=== PATIENT | male | born 1965 | race Caucasian/White ===

== ENCOUNTER 2017-07-15 11:23 | Observation (INO) | payer BC ==
--- NOTE | 2017-07-15 11:33 | ER Document Report ---
ED General - General Stated Complaint: LEF SIDE NUMBNESS,BLURRY VISION Time Seen by Provider: 07/15/17 11:27 Mode of Arrival: Medic Information source: Patient TRAVEL OUTSIDE OF THE [place] 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 felt as though his entire left side "was asleep", he was able to move it but he had decreased sensation with pins and needles, he denies any headache, no chest pain, no history of similar symptoms previously, he still having sensation changes on arrival to the emergency room but reports that symptoms are improving - Related Data Allergies/Adverse Reactions: No Known Allergies Allergy (Verified 08/15/15 22:12) Past Medical History - General Information source: Patient - Social History Smoking Status: Unknown if Ever Smoked Family History: Arthritis, DM, Hyperlipidemia, Hypertension, Malignancy Musculoskeltal Medical History: Reports Hx Musculoskeletal Trauma Past Surgical History: Reports: Hx Appendectomy, Hx Tonsillectomy - Immunizations Immunizations up to date: Yes Hx Diphtheria, Pertussis, Tetanus Vaccination: Yes Review of Systems - Review of Systems Constitutional: No symptoms reported EENT: No symptoms reported Cardiovascular: No symptoms reported Respiratory: No symptoms reported Gastrointestinal: No symptoms reported Genitourinary: No symptoms reported Male Genitourinary: No symptoms reported Musculoskeletal: No symptoms reported Skin: No symptoms reported Hematologic/Lymphatic: No symptoms reported Neurological/Psychological: See HPI -: Yes All other systems reviewed and negative Physical Exam - Vital signs Vitals: Temp Pulse Resp BP Pulse Ox 98.2 F 79 19 130/93 H 97 07/15/17 11:41 07/15/17 11:41 07/15/17 11:41 07/15/17 11:41 07/15/17 11:41 Interpretation: Normal - General General appearance: Appears well, Alert - HEENT Head: Normocephalic, Atraumatic Eyes: Normal Pupils: PERRL - Respiratory Respiratory status: No respiratory distress Chest status: Nontender Breath sounds: Normal Chest palpation: Normal - Cardiovascular Rhythm: Regular Heart sounds: Normal auscultation Murmur: No - Abdominal Inspection: Normal Distension: No distension Bowel sounds: Normal Tenderness: Nontender Organomegaly: No organomegaly - Back Back: Normal, Nontender - Extremities General upper extremity: Normal inspection, Nontender, Normal color, Normal ROM , Normal temperature General lower extremity: Normal inspection, Nontender, Normal color, Normal ROM , Normal temperature, Normal weight bearing. No: Lorie's sign - Neurological Neuro grossly intact: Yes Cognition: Normal Orientation: AAOx4 [place] Coma Scale Eye Opening: Spontaneous [place] Coma Scale Verbal: Oriented [place] Coma Scale Motor: Obeys Commands [place] Coma Scale Total: 15 Speech: Normal Motor strength normal: LUE, RUE, LLE, RLE Sensory: Normal - Psychological Associated symptoms: Normal affect, Normal mood - Skin Skin Temperature: Warm Skin Moisture: Dry Skin Color: Normal Course - Re-evaluation Re-evalutation: 07/15/17 12:32 Patient reports his symptoms are improving, he no longer has any left facial numbness or tingling, his left upper extremity numbness and tingling is significantly improved, he continues to have some decreased sensation in his left lower extremity, he continues to have good strength in all 4 extremities, no facial asymmetry, otherwise stable, I did receive a phone call from radiology who recommended MRI of the brain secondary to a small area of concern in the left parietal 07/15/17 14:20 Patient reports symptoms are completely resolved at this point in time, he has good sensation in all 4 extremities with good strength as well, no symptoms at present time, a call was placed [facility], requested callback from neurology to review patient's presentation and imaging findings for further recommendation 07/15/17 14:46 Patient was discussed with neurology at [facility], Dr. Florentino, I did review patient's presentation, his resolution of symptoms, and his imaging findings, Dr. Florentino suggests that this is more likely a TIA and recommends patient be admitted for a full stroke workup, he does not believe this to be related to demyelinating disease as patient's symptoms have resolved at this time A call was placed to hospitalist service to request admission, spoke with Dr. Rodas who accepts for observation admission - Vital Signs Vital signs: Temp Pulse Resp BP Pulse Ox 98.2 F 79 19 128/80 H 98 07/15/17 11:41 07/15/17 11:47 07/15/17 14:15 07/15/17 14:15 07/15/17 14:15 - Laboratory Result Diagrams: 07/15/17 11:39 07/15/17 12:25 Laboratory results interpreted by me: 07/15/17 07/15/17 12:25 12:45 Direct Bilirubin 0.5 H ALT 17 L Urine Urobilinogen 2.0 H - Diagnostic Test Radiology reviewed: Image reviewed, Reports reviewed - EKG Interpretation by Me EKG shows normal: Sinus rhythm Rate: Normal Rhythm: NSR Discharge - Discharge Clinical Impression: TIA (transient ischemic attack) Qualifiers: Transient cerebral ischemia type: other Qualified Code(s): G45.8 - Other transient cerebral ischemic attacks and related syndromes Condition: Fair Disposition: ADMITTED OBSERVATION Admitting Provider: Hospitalist Unit Admitted: Telemetry
[2017-07-15 11:54] LABS: ABSOLUTE BASOPHILS # (AUTO) 0.1 10^3/uL (0.0-0.2); ABSOLUTE EOSINOPHILS # (AUTO) 0.1 10^3/uL (0.0-0.6); ABSOLUTE LYMPHOCYTES (AUTO) 1.8 10^3/uL (0.5-4.7); ABSOLUTE MONOCYTES (AUTO) 0.5 10^3/uL (0.1-1.4); BASOPHILS % (AUTO) 0.9 % (0-2); HEMATOCRIT 47.5 % (37.9-51.0); HEMOGLOBIN 16.3 g/dL (13.5-17.0); LYMPHOCYTES % (AUTO) 17.1 % (13-45); MEAN CORPUSCULAR HEMOGLOBIN 32.3 pg (27.0-33.4); MEAN CORPUSCULAR HGB CONC 34.3 g/dL (32.0-36.0); MEAN CORPUSCULAR VOLUME 94 fl (80-97); MONOCYTES % (AUTO) 5.1 % (3-13); PLATELET COUNT 178 10^3/uL (150-450); RED BLOOD COUNT 5.04 10^6/uL (4.35-5.55); RED CELL DISTRIBUTION WIDTH 13.3 % (11.5-14.0); SEGMENTED NEUTROPHILS % (AUTO) 75.9 % (42-78); TOTAL CELLS COUNTED % (AUTO) 100 %; WHITE BLOOD COUNT 10.5 10^3/uL (4.0-10.5)
[2017-07-15 12:02] LABS: PROTHROMBIN TIME 12.6 SEC (11.4-15.4)
[2017-07-15 12:03] LABS: PARTIAL THROMBOPLASTIN TIME 26.4 SEC (23.5-35.8)
--- NOTE | 2017-07-15 12:08 | RADIOLOGY REPORT (SQ) ---
EXAM DESCRIPTION: CHEST 2 VIEWS COMPLETED DATE/TIME: 07/15/2017 11:51 am REASON FOR STUDY: left sided numbness COMPARISON: 01/08/2009 EXAM PARAMETERS: NUMBER OF VIEWS: two views TECHNIQUE: Digital Frontal and Lateral radiographic views of the chest acquired. RADIATION DOSE: NA LIMITATIONS: none FINDINGS: LUNGS AND PLEURA: No opacities, masses or pneumothorax. No pleural effusion. MEDIASTINUM AND HILAR STRUCTURES: No masses or contour abnormalities. HEART AND VASCULAR STRUCTURES: Heart normal size. No evidence for failure. BONES: No acute findings. HARDWARE: None in the chest. OTHER: No other significant finding. IMPRESSION: NO ACUTE RADIOGRAPHIC FINDING IN THE CHEST. TECHNICAL DOCUMENTATION: JOB ID: [id number] [employer]- All Rights Reserved Reading location - IP/workstation name: [email or web address]
--- NOTE | 2017-07-15 12:13 | RADIOLOGY REPORT (SQ) ---
EXAM DESCRIPTION: CT HEAD WITHOUT COMPLETED DATE/TIME: 07/15/2017 11:56 am REASON FOR STUDY: left sided numbness COMPARISON: None. TECHNIQUE: Axial images acquired through the brain without intravenous contrast. Images reviewed wi th bone, brain and subdural windows. All Images stored on PACS. All CT scanners at this facility use dose modulation, iterative reconstruction, and/or weight based d osing when appropriate to reduce radiation dose to as low as reasonably achievable (ALARA). [facility]: Dose Right [facility]: CareDose [facility]: Dose Right [facility]: Teradose 4D [facility]: [employer] RADIATION DOSE: CT Rad equipment meets quality standard of care and radiation dose reduction techniq ues were employed. CTDIvol: 53.2 mGy. DLP: 1044 mGy-cm. mGy. LIMITATIONS: None. FINDINGS: VENTRICLES: Normal size and contour. CEREBRUM: No hemorrhage identified. No midline shift. A faint hypodense areas noted in the left wanda etal region, developing infarction may be of concern. Consider MR follow-up. CEREBELLUM: No masses. No hemorrhage. No alteration of density. No evidence for acute infarction. EXTRAAXIAL SPACES: No fluid collections. No masses. ORBITS AND GLOBE: No intra- or extraconal masses. Normal contour of globe without masses. CALVARIUM: No fracture. PARANASAL SINUSES: No fluid or mucosal thickening. SOFT TISSUES: No mass or hematoma. OTHER: No other significant finding. IMPRESSION: No acute hemorrhage. EVIDENCE OF ACUTE STROKE: A faint hypodense area noted left parietal region. Developing infarction may be of concern. Consider MR follow-up. COMMENT: Findings called to Dr. Salmeron of [place] ED at the time of study. Quality ID # [id number]: Final reports with documentation of one or more dose reduction techniques (e.g., Au tomated exposure control, adjustment of the mA and/or kV according to patient size, use of iterative reconstruction technique) TECHNICAL DOCUMENTATION: JOB ID: [id number] [employer]- All Rights Reserved Reading location - IP/workstation name: [email or web address]
[2017-07-15] MEDS ORDERED: ASPIRIN 81 MG TABLET, CHEWABLE PO ONE (12:28)
[2017-07-15 13:00] LABS: APPEARANCE,URINE CLEAR; BILIRUBIN,URINE NEGATIVE (NEGATIVE); COLOR,URINE YELLOW; GLUCOSE, URINE NEGATIVE (NEGATIVE); KETONES,URINE NEGATIVE (NEGATIVE); LEUKOCYTE ESTERASE,URINE NEGATIVE (NEGATIVE); NITRITE,URINE NEGATIVE (NEGATIVE); PROTEIN,URINE NEGATIVE (NEGATIVE); URINE SPECIFIC GRAVITY 1.016
[2017-07-15 13:08] LABS: ALANINE AMINOTRANSFERASE 17 U/L (21-72); ALBUMIN 4.5 g/dL (3.5-5.0); ALKALINE PHOSPHATASE 70 U/L (38-126); ANION GAP 9 (5-19); ASPARTATE AMINO TRANSFERASE 31 U/L (17-59); BILIRUBIN,DIRECT 0.5 mg/dL (0.0-0.4); BILIRUBIN,TOTAL 0.7 mg/dL (0.2-1.3); BLOOD UREA NITROGEN 12 mg/dL (7-20); CALCIUM 9.7 mg/dL (8.4-10.2); CARBON DIOXIDE 30 mmol/L (22-30); CHLORIDE 104 mmol/L (98-107); GLUCOSE 89 mg/dL (75-110); POTASSIUM 4.2 mmol/L (3.6-5.0); SODIUM 142.6 mmol/L (137-145); TOTAL PROTEIN 7.7 g/dL (6.3-8.2)
[2017-07-15 13:37] LABS: URINE AMPHETAMINES SCREEN NEGATIVE; URINE BARBITURATES SCREEN NEGATIVE; URINE BENZODIAZEPINES SCREEN NEGATIVE; URINE COCAINE SCREEN NEGATIVE; URINE MARIJUANA (THC) SCREEN NEGATIVE; URINE METHADONE SCREEN NEGATIVE; URINE PHENCYCLIDINE SCREEN NEGATIVE
--- NOTE | 2017-07-15 14:02 | RADIOLOGY REPORT (SQ) ---
EXAM DESCRIPTION: MRI HEAD WITHOUT COMPLETED DATE/TIME: 07/15/2017 1:46 pm REASON FOR STUDY: left sided tingling COMPARISON: CT brain 07/15/2017 TECHNIQUE: Multiplanar imaging includes non-contrasted T1, T2, FLAIR, and diffusion with ADC map seq uences. Images stored on PACS. LIMITATIONS: None. FINDINGS: ANATOMY: No developmental anomalies. Normal vascular flow voids. Pituitary fossa normal. CSF SPACES: Normal in size and contour. No hemorrhage. CEREBRUM: Diffusion-weighted images are negative for acute ischemic change. No acute intracranial he morrhage, mass effect, or midline shift. Spotty bifrontal and biparietal increased FLAIR/T2 white matter signal likely small vessel ischemic c hange or minimal gliosis along perivascular spaces. Demyelinating disease is possible. POSTERIOR FOSSA: No signal alteration. No hemorrhage. No edema, masses or mass effect. Internal logan tory canals, cerebello-pontine angles, mastoids normal. DIFFUSION IMAGING: Negative for acute or sub-acute infarction. ORBITS: No masses. Globes normal. PARANASAL SINUSES: No fluid levels. Mucosa normal. OTHER: No other significant finding. IMPRESSION: No acute findings. Spotty increased bifrontal and biparietal white matter signal on FLAIR/ T2. This could represent min imal small vessel ischemic change, gliosis along perivascular spaces. Demyelinating disease is also possible. EVIDENCE OF ACUTE STROKE: NO. TECHNICAL DOCUMENTATION: JOB ID: [id number] [employer]- All Rights Reserved Reading location - IP/workstation name: [email or web address]
[2017-07-15] MEDS ORDERED: ACETAMINOPHEN 325 MG TABLET PO PRN (16:52)
[2017-07-15] MEDS ORDERED: ONDANSETRON HCL INJ/PF 4 MG/2 ML SDV IV PRN (16:52)
[2017-07-15 17:33] LABS: FREE T4 (FREE THYROXINE) 1.11 ng/dL (0.78-2.19)
[2017-07-15 17:46] LABS: THYROID STIMULATING HORMONE 0.93 uIU/mL (0.47-4.68)
--- NOTE | 2017-07-15 17:51 | PDOC H&P ---
History of Present Illness Admission Date/PCP: 07/15/17 15:16 Patient complains of: Left arm and leg numbness clumsiness and slurred speech History of Present Illness: NGOC BANERJEE is a 52 year old male who was in his usual state of health today at work. 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 He was a little worried but did not think too much about it. He got into his truck and then was unable to use the clutch secondary to left leg clumsiness. He went to speak with his boss about what was going on and the boss told him he had slurred speech. Boss told him to get home and try to seek medical care. The patient fortunately called 911 and an ambulance came to his place of employment and picked him up, brought him into the ER. He has had an MRI which does not show acute stroke though his symptoms are very concerning for stroke. He is being admitted for valuation for stroke or other etiology of his symptoms. Past Medical History Cardiac Medical History: Denies: Atrial Fibrillation, Coronary Artery Disease, Hyperlipidema Pulmonary Medical History: Reports: Other - Tobacco use disorder Denies: Asthma, Respiratory Failure EENT Medical History: Denies: Eyes, Ears Neurological Medical History: Denies: Hemorrhagic CVA, Ischemic CVA, Multiple Sclerosis, Seizures Endocrine Medical History: Denies: Diabetes Mellitus Type 2, Hypothyroidism Renal/ Medical History: Denies: Chronic Kidney Disease Malignancy Medical History: Denies: None GI Medical History: Denies: Cirrhosis, Peptic Ulcer Disease Skin Medical History: Denies: None Psychiatric Medical History: Reports: Alcohol Dependency, Tobacco Dependency Denies: Depression, General Anxiety Disorder, Substance Abuse Traumatic Medical History: Reports: None Hematology: Denies: Anemia Infectious Medical History: Reports: None Past Surgical History Past Surgical History: Reports: Appendectomy, Tonsillectomy Social History Information Source: Patient Smoking Status: Current Every Day Smoker Cigarettes Packs Per Day: 1 Number of Years Smokin Frequency of Alcohol Use: Heavy Amount of Alcoholic Beverages Per Day: 6-9 beers on the weekends. 3 beers at least on weekdays. Last Alcohol Use: 07/14/17 Drugs: None Hx Prescription Drug Abuse: No Past Social History Note: Patient has a fianc who is in the room with him. He has 2 twin daughters that are 22 and a son who is 19 who is also with him in the hospital. - Advance Directive Resuscitation Status: Full Code Family History Family History: Arthritis, DM, Hyperlipidemia, Hypertension, Malignancy Parental Family History Reviewed: Yes - Mother with dementia and heart failure Children Family History Reviewed: Yes Sibling(s) Family History Reviewed.: Yes - Children are healthy Medication/Allergy Allergies/Adverse Reactions: No Known Allergies Allergy (Verified 08/15/15 22:12) Review of Systems Constitutional: PRESENT: fatigue. ABSENT: chills, fever(s), headache(s) Eyes: PRESENT: visual disturbances Ears: ABSENT: hearing changes Nose, Mouth, and Throat: ABSENT: headache(s), vertigo Cardiovascular: ABSENT: chest pain, dyspnea on exertion, edema, palpitations Respiratory: ABSENT: cough, dyspnea, other - Mild wheezing, never diagnosed with COPD or asthma Gastrointestinal: ABSENT: abdominal pain, constipation, diarrhea, nausea, vomiting Genitourinary: ABSENT: difficulty urinating, dysuria, hematuria Musculoskeletal: ABSENT: back pain, muscle weakness Integumentary: ABSENT: rash Neurological: PRESENT: abnormal speech, lack of coordination, numbness. ABSENT : confusion, dizziness, frequent falls, syncope Psychiatric: ABSENT: anxiety, depression Endocrine: ABSENT: cold intolerance, heat intolerance Hematologic/Lymphatic: ABSENT: easy bleeding, easy bruising Physical Exam Vital Signs: Temp Pulse Resp BP Pulse Ox 98.2 F 78 13 126/89 H 96 07/15/17 11:41 07/15/17 17:11 07/15/17 17:11 07/15/17 17:11 07/15/17 17:11 General appearance: PRESENT: no acute distress, cooperative, well-developed, well-nourished Head exam: PRESENT: atraumatic, normocephalic Eye exam: PRESENT: conjunctiva pink, EOMI. ABSENT: scleral icterus Ear exam: PRESENT: normal external ear exam Mouth exam: PRESENT: moist, neck supple Teeth exam: PRESENT: poor dentation Respiratory exam: PRESENT: unlabored, wheezes - Mild scattered expiratory wheezing with good air movement. ABSENT: rales, rhonchi Cardiovascular exam: PRESENT: RRR. ABSENT: systolic murmur Pulses: PRESENT: normal radial pulses, normal dorsalis pedis pul GI/Abdominal exam: PRESENT: normal bowel sounds, soft. ABSENT: distended, firm , guarding, tenderness Rectal exam: PRESENT: deferred Extremities exam: ABSENT: pedal edema Musculoskeletal exam: PRESENT: ambulatory, normal inspection Neurological exam: PRESENT: alert, awake, oriented to person, oriented to place , oriented to situation, CN II-XII grossly intact. ABSENT: motor sensory deficit Psychiatric exam: PRESENT: appropriate affect. ABSENT: anxious Skin exam: PRESENT: dry, intact, rash, warm Results Impressions: Chest X-Ray 07/15/17 11:28 IMPRESSION: NO ACUTE RADIOGRAPHIC FINDING IN THE CHEST. Head CT 07/15/17 11:28 IMPRESSION: No acute hemorrhage. EVIDENCE OF ACUTE STROKE: A faint hypodense area noted left parietal region. Developing infarction may be of concern. Consider MR follow-up. Head MRI 07/15/17 12:07 IMPRESSION: No acute findings. Spotty increased bifrontal and biparietal white matter signal on FLAIR/ T2. This could represent minimal small vessel ischemic change, gliosis along perivascular spaces. Demyelinating disease is also possible. EVIDENCE OF ACUTE STROKE: NO. Assessment & Plan - Diagnosis (1) TIA (transient ischemic attack) Is this a current diagnosis for this admission?: Yes Plan: Patient may have had an episode of amaurosis fugax. Though his vision did not go entirely dark and it appears that it was bilateral. So this is not likely. He did have symptoms suggestive of stroke including slurred speech noticed objectively, numb and clumsy left upper and lower extremities. Symptoms have now resolved. Carotid duplex is ordered. Echocardiogram is ordered. Patient started on daily aspirin. Lipid panel ordered. Blood pressure is well controlled. Hemoglobin A1c is ordered. Physical therapy will be ordered. (2) Tobacco use disorder Is this a current diagnosis for this admission?: Yes Plan: 10 minutes of tobacco cessation counseling was performed today. Patient is now aware of the fact that tobacco use disorder predisposes towards cerebrovascular events. He would like to try to quit smoking. He is not craving now. No patch to be placed. (3) Alcohol use disorder Is this a current diagnosis for this admission?: Yes Plan: Patient acknowledges that he probably drinks too much. He has never withdrawn from alcohol. We can continue to discuss alcohol reduction or cessation strategies with him. (4) Fatigue Is this a current diagnosis for this admission?: Yes Plan: Patient reports fatigue recently that he cannot explain. He thinks he may have low testosterone based on a commercial that he saw. We discussed that this is a good reason for him to start seeing a primary care physician. While he is in the hospital I will check a TSH and free T4. - Time Time Spent: 50 to 70 Minutes Medications reviewed and adjusted accordingly: Yes Anticipated discharge: Home - Inpatient Certification Based on my medical assessment, after consideration of the patient's comorbidities, presenting symptoms, or acuity I expect that the services needed warrant INPATIENT care.: Yes I certify that my determination is in accordance with my understanding of Medicare's requirements for reasonable and necessary INPATIENT services [42 CFR 412.3e].: Yes Medical Necessity: Need Close Monitoring Due to Risk of Patient Decompensation, Risk of Complication if Not Cared For in Hospital
[2017-07-15] MEDS: LEVALBUTEROL HCL NEB 0.63 MG/3 ML AMPUL NEB SCH (20:34)
[2017-07-16] MEDS: LEVALBUTEROL HCL NEB 0.63 MG/3 ML AMPUL NEB SCH ×3 (01:20→13:47)
[2017-07-16] MEDS ORDERED: LANSOPRAZOLE 30 MG TAB.RAP.DR PO SCH (06:00)
[2017-07-16 06:20] LABS: HEMATOCRIT 49.2 % (37.9-51.0); HEMOGLOBIN 16.5 g/dL (13.5-17.0); MEAN CORPUSCULAR HEMOGLOBIN 31.7 pg (27.0-33.4); MEAN CORPUSCULAR HGB CONC 33.5 g/dL (32.0-36.0); MEAN CORPUSCULAR VOLUME 95 fl (80-97); PLATELET COUNT 188 10^3/uL (150-450); RED CELL DISTRIBUTION WIDTH 13.3 % (11.5-14.0); WHITE BLOOD COUNT 11.1 10^3/uL (4.0-10.5)
[2017-07-16 06:42] LABS: ANION GAP 8 (5-19); BLOOD UREA NITROGEN 17 mg/dL (7-20); CALCIUM 9.7 mg/dL (8.4-10.2); CARBON DIOXIDE 31 mmol/L (22-30); CHLORIDE 104 mmol/L (98-107); CHOLESTEROL 250.29 mg/dL (0-200); GLUCOSE 119 mg/dL (75-110); POTASSIUM 4.7 mmol/L (3.6-5.0); SODIUM 142.9 mmol/L (137-145); TRIGLYCERIDES 103 mg/dL (<150)
[2017-07-16 06:53] LABS: DIRECT LDL 169 mg/dL (<100)
--- NOTE | 2017-07-16 07:29 | EKG REPORT ---
SEVERITY:- BORDERLINE ECG - SINUS RHYTHM BORDERLINE LEFT AXIS DEVIATION BORDERLINE R WAVE PROGRESSION, ANTERIOR LEADS : Confirmed by: Mata Flaherty MD 16-Jul-2017 07:29:25
[2017-07-16] MEDS ORDERED: ASPIRIN 325 MG TABLET PO SCH (10:00)
[2017-07-16] MEDS ORDERED: ENOXAPARIN SODIUM INJ 40 MG/0.4 ML DISP.SYRIN SUBCUT SCH (10:00)
--- NOTE | 2017-07-16 14:13 | RADIOLOGY REPORT (SQ) ---
EXAM DESCRIPTION: CAROTID DOPPLER COMPLETED DATE/TIME: 07/16/2017 1:52 pm REASON FOR STUDY: Stroke eval COMPARISON: None. TECHNIQUE: Grayscale ultrasound, Doppler velocity and spectra, and color Doppler images acquired of the extra-cranial carotid and vertebral arteries. Images stored on PACS. LIMITATIONS: None. FINDINGS: RIGHT CAROTID CCA Velocities: Within normal limits. ICA Velocities Peak systolic 0.90 m/s. End diastolic 0.39 m/s. Proximal ICA/CCA peak systolic ratio 0.9. Spectra normal. No significant plaque. LEFT CAROTID CCA Velocities: Within normal limits. ICA Velocities Peak systolic 0.82 m/s. End diastolic 0.29 m/s. Proximal ICA/CCA peak systolic ratio 0.9. Spectra normal. No significant plaque. VERTEBRAL ARTERIES: Antegrade flow. Normal waveforms. SUBCLAVIAN ARTERIES: No finding. OTHER: No other significant finding. IMPRESSION: NO HEMODYNAMICALLY SIGNIFICANT STENOSIS. COMMENT: Quality ID #[id number]: Velocity criteria are extrapolated from the diameter data as defined by t he Society of Radiologists in Ultrasound Consensus Conference. Radiology 2003: 229; 340-346. TECHNICAL DOCUMENTATION: JOB ID: [id number] [employer]- All Rights Reserved Reading location - IP/workstation name: [email or web address]
[2017-07-16 16:38] VITALS: BP 124/72
--- NOTE | 2017-07-16 17:46 | PDOC DISCHARGE SUMMARY ---
General - Admit/Disc Date/PCP Admission Date/Primary Care Provider: 07/15/17 15:16 None Being assigned at discharge Discharge Date: 07/16/17 - Discharge Diagnosis (1) TIA (transient ischemic attack) Is this a current diagnosis for this admission?: Yes Summary: Workup was negative. MRI did not reveal an acute CVA. He had no hemodynamically significant stenosis noted on carotid Dopplers. 2D echo cardiogram is still pending at the day of discharge. I will look at this tomorrow and call him if there are any issues. I suspect will be normal. He will be started on an 81 mg baby aspirin and a statin medication at discharge. (2) Dyslipidemia Is this a current diagnosis for this admission?: Yes Summary: He has been started on a statin medication at discharge (3) Alcohol use disorder Is this a current diagnosis for this admission?: Yes Summary: The recommendation is to cut back or stop drinking altogether (4) Tobacco use disorder Is this a current diagnosis for this admission?: Yes Summary: He has been counseled to quit smoking. (5) Fatigue Is this a current diagnosis for this admission?: Yes Summary: He states he is just been tired lately. He will establish care with a primary care provider. - Additional Information Resuscitation Status: Full Code Discharge Diet: Cardiac Discharge Activity: Activity As Tolerated, Balance Activity w/Rest, Slowly Increase Activity Prescriptions: Aspirin [Aspirin EC] 81 mg PO DAILY #30 tablet. Atorvastatin Calcium 40 mg PO DAILY #30 tablet Home Medications: Aspirin [Aspirin EC] 81 mg PO DAILY #30 tablet. 07/16/17 Atorvastatin Calcium 40 mg PO DAILY #30 tablet 07/16/17 History of Present Illness History of Present Illness: NGOC BANERJEE is a 52 year old male who presented to the hospital after having transient strokelike symptoms. Hospital Course Hospital Course: The patient is a 52-year-old male who had an episode of blurry vision and numbness in his left arm and leg came on suddenly while at work. A few minutes later he developed some slurred speech. He was brought to the emergency room but his symptoms had already resolved. He had a CT scan of the brain which was unremarkable. MRI did not reveal an acute CVA. He had carotid Dopplers performed which revealed no hemodynamically significant stenosis. He did have a 2D echocardiogram but the results are not back as of the time of this dictation. At this point it is felt that the patient suffered an acute TIA. The patient does not have a doctor and does not get any medical care. He does smoke and drink alcohol. We did discuss lifestyle changes and the importance of establishing care with a primary care provider. We are assigning when it discharged and I urged him to follow-up. He does complain of ongoing fatigue and wonders if his testosterone could be low. This will be an outpatient workup with his new provider. At this point it is felt that he can safely be discharged home. I will review his echocardiogram tomorrow and notify the patient if there are any abnormalities. I do not believe this is going to change our plan of care. He will be out discharged on an 81 mg baby aspirin as well as a statin medication. He is encouraged to quit smoking. He will be discharged home this evening in stable condition. Physical Exam Vital Signs: Temp Pulse Resp BP Pulse Ox 98.7 F 69 16 124/72 95 07/16/17 16:00 07/16/17 16:00 07/16/17 16:00 07/16/17 16:00 07/16/17 16:00 Intake & Output 07/15/17 07/16/17 07/17/17 06:59 06:59 06:59 Intake Total 435 Balance 435 Weight 66.2 kg General appearance: PRESENT: no acute distress, well-developed, well-nourished Head exam: PRESENT: atraumatic, normocephalic Mouth exam: PRESENT: moist, tongue midline Respiratory exam: PRESENT: clear to auscultation anahi. ABSENT: rales, rhonchi, wheezes Cardiovascular exam: PRESENT: RRR. ABSENT: diastolic murmur, rubs, systolic murmur GI/Abdominal exam: PRESENT: normal bowel sounds, soft. ABSENT: distended, guarding, mass, organolmegaly, rebound, tenderness Rectal exam: PRESENT: deferred Extremities exam: PRESENT: full ROM. ABSENT: calf tenderness, clubbing, pedal edema Musculoskeletal exam: PRESENT: ambulatory Neurological exam: PRESENT: alert, awake, oriented to person, oriented to place , oriented to time, oriented to situation, CN II-XII grossly intact. ABSENT: motor sensory deficit Psychiatric exam: PRESENT: appropriate affect, normal mood. ABSENT: homicidal ideation, suicidal ideation Skin exam: PRESENT: dry, intact, warm. ABSENT: cyanosis, rash Results Laboratory Results: 07/16/17 06:08 07/16/17 06:08 07/16/17 07/16/17 06:08 06:08 WBC 11.1 H RBC 5.20 Hgb 16.5 Hct 49.2 MCV 95 MCH 31.7 MCHC 33.5 RDW 13.3 Plt Count 188 Sodium 142.9 Potassium 4.7 Chloride 104 Carbon Dioxide 31 H Anion Gap 8 BUN 17 Creatinine 1.11 Est GFR ( Amer) > 60 Est GFR (Non-Af Amer) > 60 Glucose 119 H Calcium 9.7 Triglycerides 103 Cholesterol 250.29 H LDL Cholesterol Direct 169 H VLDL Cholesterol 21.0 HDL Cholesterol 64 Impressions: Chest X-Ray 07/15/17 11:28 IMPRESSION: NO ACUTE RADIOGRAPHIC FINDING IN THE CHEST. Head CT 07/15/17 11:28 IMPRESSION: No acute hemorrhage. EVIDENCE OF ACUTE STROKE: A faint hypodense area noted left parietal region. Developing infarction may be of concern. Consider MR follow-up. Head MRI 07/15/17 12:07 IMPRESSION: No acute findings. Spotty increased bifrontal and biparietal white matter signal on FLAIR/ T2. This could represent minimal small vessel ischemic change, gliosis along perivascular spaces. Demyelinating disease is also possible. EVIDENCE OF ACUTE STROKE: NO. Carotid Doppler Study 07/16/17 00:00 IMPRESSION: NO HEMODYNAMICALLY SIGNIFICANT STENOSIS. Qualifiers - * PATEINT BEING DISCHARGED WITH ANY OF THE FOLLOWING DIAGNOSIS?: No Plan Time Spent: Greater than 30 Minutes
--- NOTE | 2017-07-16 19:46 | XCELERA REPORT ---
[address] [address] Transthoracic Echocardiogram Report Name: NGOC BANERJEE Age: 52 yrs Gender: Male : 1965 Patient Status: Inpatient Patient Location: [address] [place] [address] Study Date: 07/16/2017 10:27 AM Height: 67 in Weight: 149 lb BSA: 1.8 m2 Procedure: A complete two-dimensional transthoracic echocardiogram was performed (2D, M-mode, spectral and color flow Doppler). The study was technically adequate with some images being suboptimal in quality. Reason For Study: Stroke eval Ordering Physician: RONNA HOLLINS Performed By: Gema Moore Interpretation Summary The left ventricle has normal cavity size with globally normal systolic function. Estimated left ventricular ejection fraction is 55%. There is normal left ventricular wall thickness. The left ventricle is grossly normal size. Doppler measurements suggest pseudonormalized left ventricular relaxation, which is associated with grade II/IV or mild to moderate diastolic dysfunction Wall motion cannot be accurately commented on, but no definite regional wall motion abnormalities noted. Borderline right ventricular enlargement. The right ventricular systolic function is normal. Borderline right atrial enlargement. The left atrial size is normal. There is no mitral valve stenosis. There is a trace amount of mitral regurgitation There is no aortic valve stenosis No aortic regurgitation is present. There is a trace or physiologic amount of tricuspid regurgitation Tricuspid regurgitation jet envelope not well defined to measure RV systolic pressure accurately. The aortic root is not well visualized but is probably normal size. The inferior vena cava appeared normal and decreased > 50% with respiration (RAP 5-10 mmHg) There is no pericardial effusion. No definite cardiac source of CVA/TIA noted on this particular trans- thoracic study. Consider ANNETTE if clinically indicated. May consider mobile cardiac telemetry monitoring (MCT) for ruling out transient AFIB. MMode/2D Measurements & Calculations RVDd: 3.3 cm LVIDd: 4.4 cm FS: 44.6 % Ao root diam: 3.0 cm IVSd: 0.84 cm LVIDs: 2.4 cm EDV(Teich): 87.8 ml LVPWd: 0.81 cm ESV(Teich): 21.0 ml Ao root area: 6.9 cm2 EF(Teich): 76.1 % LA dimension: 2.9 cm Doppler Measurements & Calculations MV E max hernan: MV P1/2t max hernan: Ao V2 max: LV V1 max P.7 cm/sec 63.2 cm/sec 129.4 cm/sec 3.0 mmHg MV A max hernan: MV P1/2t: 73.6 msec Ao max PG: LV V1 max: 71.1 cm/sec 6.7 mmHg 86.9 cm/sec MV E/A: 0.88 MVA(P1/2t): 3.0 cm2 MV dec slope: 251.5 cm/sec2 MV dec time: 0.26 sec PA V2 max: TR max hernan: 68.6 cm/sec 218.5 cm/sec PA max PG: TR max P.1 mmHg 1.9 mmHg Left Ventricle The left ventricle is grossly normal size. There is normal left ventricular wall thickness. The left ventricle has normal cavity size with globally normal systolic function. Estimated left ventricular ejection fraction is 55%. Doppler measurements suggest pseudonormalized left ventricular relaxation, which is associated with grade II/IV or mild to moderate diastolic dysfunction. Wall motion cannot be accurately commented on, but no definite regional wall motion abnormalities noted. Right Ventricle Borderline right ventricular enlargement. There is normal right ventricular wall thickness. The right ventricular systolic function is normal. Atria Borderline right atrial enlargement. The left atrial size is normal. Interarterial septum not well visualized and not well dopplered. Cannot comment on ASD/PFO presence. Mitral Valve The mitral valve is grossly normal. There is no mitral valve stenosis. There is a trace amount of mitral regurgitation. Aortic Valve The aortic valve is grossly normal. There is no aortic valve stenosis. No aortic regurgitation is present. Tricuspid Valve The tricuspid valve is not well visualized, but is grossly normal. There is no tricuspid stenosis. There is a trace or physiologic amount of tricuspid regurgitation. Tricuspid regurgitation jet envelope not well defined to measure RV systolic pressure accurately. Pulmonic Valve The pulmonic valve is not well visualized. Great Vessels The aortic root is not well visualized but is probably normal size. The inferior vena cava appeared normal and decreased > 50% with respiration (RAP 5-10 mmHg). Effusions There is no pericardial effusion. Incidental Findings No definite cardiac source of CVA/TIA noted on this particular trans- thoracic study. Consider ANNETTE if clinically indicated. May consider mobile cardiac telemetry monitoring (MCT) for ruling out transient AFIB. : RONNA HOLLINS > Lucio Betancourt
== END 2017-07-16 18:31 | disposition home or self-care (01) ==
LOC: ER 11:23 → EH 15:16 → 5 21:45
PROVIDERS: ADMIT Family Medicine; ATTEND Family Medicine
DX: G45.9 Transient cerebral ischemic attack, unspecified (principal); E78.5 Hyperlipidemia, unspecified; R53.83 Other fatigue; Z72.89 Other problems related to lifestyle; F17.210 Nicotine dependence, cigarettes, uncomplicated; R06.2 Wheezing; R27.9 Unspecified lack of coordination; R20.0 Anesthesia of skin; R20.2 Paresthesia of skin; Z90.49 Acquired absence of other specified parts of digestive tract; Z82.49 Family history of ischemic heart disease and other diseases of the circulatory system
CPT/HCPCS: 93005; 94640 ×2; 99285; 36415 ×2; 84439; 82962; 84443; 85025; 85027; 85610; 85730; 80048; 80053; 81001; 84484; 80307; 83036; 80061; 93306; 93880; 70551; 71046; 70450; 93010; G0378 ×3; J1650; J3490; J7614 ×2

== ENCOUNTER 2018-07-28 08:34 | Emergency (ER) | payer BC ==
[2018-07-28 08:42] VITALS: BP 126/108
--- NOTE | 2018-07-28 09:19 | RADIOLOGY REPORT (SQ) ---
EXAM DESCRIPTION: HAND RIGHT 3 VIEWS COMPLETED DATE/TIME: 07/28/2018 9:08 am REASON FOR STUDY: Colton fell on hand; pain with movement. COMPARISON: None. EXAM PARAMETERS: NUMBER OF VIEWS: Three views. TECHNIQUE: AP, lateral and oblique radiographic images acquired of the right hand. LIMITATIONS: None. FINDINGS: MINERALIZATION: Normal. BONES: No acute fracture or dislocation. No worrisome bone lesions. Old healed 5th metacarpal fract ure. JOINTS: No effusions. SOFT TISSUES: No soft tissue swelling. No foreign body. OTHER: No other significant finding. IMPRESSION: NO RADIOGRAPHIC EVIDENCE OF ACUTE INJURY. TECHNICAL DOCUMENTATION: JOB ID: [id number] [employer]- All Rights Reserved Reading location - IP/workstation name: [email or web address]
[2018-07-28] MEDS ORDERED: IBUPROFEN 800 MG TABLET PO ONE (09:47)
--- NOTE | 2018-07-28 09:51 | ER Document Report ---
HPI - HPI Patient complains to provider of: r hand injury Time Seen by Provider: 07/28/18 09:14 Onset: Yesterday Onset/Duration: Sudden Quality of pain: Achy Pain Level: 5 Context: Patient states that he was working with a jacket yesterday and accidentally crushed his right hand between the misti and the truck bed. Patient is right- hand dominant. Patient complains of pain to right third knuckle and finger. 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 Associated Symptoms: Other - Right hand injury Exacerbated by: Movement Relieved by: Remaining still Similar symptoms previously: No Recently seen / treated by doctor: No - ROS ROS below otherwise negative: Yes Systems Reviewed and Negative: Yes All other systems reviewed and negative - NEURO Neurology: DENIES: Weakness - GASTROINTESTINAL Gastrointestinal: DENIES: Nausea - MUSCULOSKELETAL Musculoskeletal: REPORTS: Extremity pain - right hand - DERM Skin Color: Normal Skin Problems: None Past Medical History - General Information source: Patient - Social History Smoking Status: Current Every Day Smoker Chew tobacco use (# tins/day): No Smoking Education Provided: Yes Frequency of alcohol use: Occasional Drug Abuse: None 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 Family History: Arthritis, DM, Hyperlipidemia, Hypertension, Malignancy Patient has suicidal ideation: No Patient has homicidal ideation: No - Past Medical History Cardiac Medical History: Denies: Hx Atrial Fibrillation, Hx Coronary Artery Disease, Hx Hypercholesterolemia Pulmonary Medical History: Denies: Hx Asthma, Hx Respiratory Failure Neurological Medical History: Denies: Hx Seizures Endocrine Medical History: Denies: Hx Diabetes Mellitus Type 2, Hx Hypothyroidism Renal/ Medical History: Denies: Hx Peritoneal Dialysis GI Medical History: Denies: Hx Cirrhosis Musculoskeletal Medical History: Reports Hx Musculoskeletal Trauma Psychiatric Medical History: Denies: Hx Depression Past Surgical History: Reports: Hx Appendectomy, Hx Tonsillectomy - Immunizations Immunizations up to date: Yes Hx Diphtheria, Pertussis, Tetanus Vaccination: Yes Vertical Provider Document - CONSTITUTIONAL Agree With Documented VS: Yes Exam Limitations: No Limitations General Appearance: WD/WN, No Apparent Distress - INFECTION CONTROL TRAVEL OUTSIDE OF THE [place] IN LAST 30 DAYS: No - HEENT HEENT: Atraumatic, Normocephalic - NECK Neck: Normal Inspection - RESPIRATORY Respiratory: Breath Sounds Normal, No Respiratory Distress - CARDIOVASCULAR Pulses: Normal: Radial - MUSCULOSKELETAL/EXTREMETIES Musculoskeletal/Extremeties: MAEW, Tender - Tenderness to right third finger to the proximal phalanx as well as the right third MCP joint, no deformity, no edema or ecchymosis. Normal range of motion against resistance with lection and extension - NEURO Level of Consciousness: Awake, Alert, Appropriate Motor/Sensory: No Motor Deficit, No Sensory Deficit - DERM Integumentary: Warm, Dry, No Rash Course - Vital Signs Vital signs: Temp Pulse Resp BP Pulse Ox 98.3 F 81 16 126/108 H 100 07/28/18 08:41 07/28/18 08:41 07/28/18 08:41 07/28/18 08:41 07/28/18 08:41 - Diagnostic Test Radiology reviewed: Image reviewed, Reports reviewed Procedures - Immobilization Right 3rd digit Pre-Proc Neuro Vasc Exam: Normal Immobilizer type: Finger splint (Static) Performed by: PCT Post-Proc Neuro Vasc Exam: Normal Alignment checked and good: Yes Discharge - Discharge Clinical Impression: Crush injury Sprain, finger Qualifiers: Encounter type: initial encounter Finger: middle finger Sprain of finger site: unspecified site Laterality: right Qualified Code(s): S63.612A - Unspecified sprain of right middle finger, initial encounter Condition: Stable Disposition: HOME, SELF-CARE Instructions: Crush Injury ([facility]), Sprained Finger ([facility]), Temporary Splint ([facility]) Additional Instructions: Return immediately for any new or worsening symptoms Followup with your primary care provider, call tomorrow to make a followup appointment Follow-up with orthopedics for any persistent pain or problems Wear splint for the next 3-4 days and then remove. If still having pain follow- up with orthopedics for further evaluation. Prescriptions: Naproxen [Naprosyn 250 Nmg Tablet] 1 tab PO BID #14 tablet Forms: Smoking Cessation Education, Return to Work Referrals: DICK WILSON DO [ACTIVE STAFF] - Follow up as needed
== END 2018-07-28 10:32 | disposition home or self-care (01) ==
LOC: ER 08:34
DX: S67.21XA Crushing injury of right hand, initial encounter (principal); S63.612A Unspecified sprain of right middle finger, initial encounter; W23.0XXA Caught, crushed, jammed, or pinched between moving objects, initial encounter; F17.200 Nicotine dependence, unspecified, uncomplicated
CPT/HCPCS: 99283

== ENCOUNTER → 2019-02-22 | Outpatient (CLI) | payer BC ==
--- NOTE | 2019-02-23 18:42 | RADIOLOGY REPORT (SQ) ---
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 TECHNIQUE: Blood glucose level was verified. Above dose of FDG was injected intravenously. 2-D seg mented attenuation correction images were obtained from the base of the skull to the midthighs. Nonc ontrast CT images were obtained for attenuation correction and fusion with emission images. CT image s were performed without oral or intravenous contrast and are not sensitive for parenchymal lesions. A series of overlapping emission PET images were obtained. Images reviewed and manipulated at [facility] work [facility] by the radiologist. Images stored on PACS. LIMITATIONS: None. FINDINGS: HEAD AND NECK: No areas of abnormal metabolic activity in the soft tissues of the head and neck. CHEST: There is bandlike increased metabolic activity along the nasopharyngeal mucosa at the fossa of Rosenmuller worrisome for primary neoplasm, with SUV of 5.3. In the left parapharyngeal space on axial image 30, a 9 mm hypermetabolic lymph node is present with SUV of 6. In the left posterior neck level 5a, a 2.7 x 1.6 cm lymph node is present on axial image 28 with SUV of 9.2. On the left side, there is a level 3 lymph node 2.5 x 2.1 cm in size on axial image 42 with SUV of 8. 5. In the right posterior neck, level 5a, a 1.4 x 1.2 cm lymph node is present on axial image 30 with FAIR V of 6.8. ABDOMEN AND PELVIS: No areas of abnormal metabolic activity in the abdomen or pelvis. Expected physi ologic activity is present in the genitourinary system and bowel. PROXIMAL LOWER EXTREMITIES: No areas of abnormal metabolic activity in the soft tissues of the lower extremities. BONES: No abnormal metabolic activity in the visualized skeleton. ADDITIONAL CT FINDINGS: No additional significant findings on the noncontrast CT images. OTHER: Liver background activity 1.6 SUV. Blood pool background activity 1.3 SUV IMPRESSION: Hypermetabolic lesion in the fossa of Rosenmuller on the left side, with adjacent hyperm etabolic parapharyngeal lymph node. Other enlarged metabolically active cervical lymph nodes as abov e. 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 TECHNICAL DOCUMENTATION: JOB ID: [id number] [employer]- All Rights Reserved Reading location - IP/workstation name: [email or web address]
== END ==
LOC: RAD 16:58
PROVIDERS: ATTEND Otolaryngology
DX: C76.0 Malignant neoplasm of head, face and neck (principal)
CPT/HCPCS: 78815; A9552

== ENCOUNTER 2019-03-24 09:30 | Day surgery (SDC) | payer BC ==
[~2019-03-24 09:30] MED LIST: CEFAZOLIN SODIUM 1 GM in DEXTROSE 5%-WATER 50 ML IV PRN; DIAZEPAM 5 MG TABLET PO PRN; OXYCODONE-ACETAMINOPHEN 5-325 MG TABLET PO PRN
[2019-03-24 10:11] LABS: HEMATOCRIT 45.7 % (37.9-51.0); HEMOGLOBIN 15.7 g/dL (13.5-17.0); MEAN CORPUSCULAR HEMOGLOBIN 32.3 pg (27.0-33.4); MEAN CORPUSCULAR HGB CONC 34.4 g/dL (32.0-36.0); MEAN CORPUSCULAR VOLUME 94 fl (80-97); PLATELET COUNT 148 10^3/uL (150-450); RED BLOOD COUNT 4.87 10^6/uL (4.35-5.55); RED CELL DISTRIBUTION WIDTH 12.4 % (11.5-14.0)
[2019-03-24] MEDS ORDERED: DIAZEPAM 5 MG TABLET ONE (10:12)
[2019-03-24] MEDS ORDERED: OXYCODONE-ACETAMINOPHEN 5-325 MG TABLET ONE (10:12)
--- NOTE | 2019-03-24 10:19 | RADIOLOGY REPORT (SQ) ---
EXAM DESCRIPTION: CHEST SINGLE VIEW COMPLETED DATE/TIME: 03/24/2019 10:12 am REASON FOR STUDY: PREOP COMPARISON: 07/15/2017 EXAM PARAMETERS: NUMBER OF VIEWS: One view. TECHNIQUE: Single frontal radiographic view of the chest acquired. RADIATION DOSE: NA LIMITATIONS: None. FINDINGS: LUNGS AND PLEURA: No opacities, masses or pneumothorax. No pleural effusion. MEDIASTINUM AND HILAR STRUCTURES: No masses. Contour normal. HEART AND VASCULAR STRUCTURES: Heart normal in size. Normal vasculature. BONES: No acute findings. HARDWARE: None in the chest. OTHER: No other significant finding. IMPRESSION: NO ACUTE RADIOGRAPHIC FINDING IN THE CHEST. TECHNICAL DOCUMENTATION: JOB ID: [id number] [employer]- All Rights Reserved Reading location - IP/workstation name: [email or web address]
[2019-03-24 10:35] LABS: ANION GAP 10 (5-19); BLOOD UREA NITROGEN 17 mg/dL (7-20); CALCIUM 9.7 mg/dL (8.4-10.2); CARBON DIOXIDE 28 mmol/L (22-30); CHLORIDE 103 mmol/L (98-107); GLUCOSE 101 mg/dL (75-110); POTASSIUM 4.2 mmol/L (3.6-5.0)
[2019-03-24] MEDS ORDERED: LIDOCAINE 0.5% INJ-PF (5 MG/ML) 50 ML SDV ONE (11:17)
[2019-03-24] MEDS ORDERED: BACITRACIN INJ 50,000 UNIT VIAL ONE (11:18)
[2019-03-24] MEDS ORDERED: FENTANYL CITRATE INJ/PF 100 MCG/2 ML AMPUL ONE (11:34)
[2019-03-24] MEDS ORDERED: MIDAZOLAM 2 MG/2 ML INJ ONE (11:34)
--- NOTE | 2019-03-24 12:58 | RADIOLOGY REPORT (SQ) ---
EXAM DESCRIPTION: PORTACATH INSERTION; GUIDANCE ULTRASOUND; GUIDANCE FLUOROSCOPIC COMPLETED DATE/TIME: 03/24/2019 12:47 pm REASON FOR STUDY: C76.0 NECK CA C76.0 MALIGNANT NEOPLASM OF HEAD, FACE AND NECK COMPARISON: None. FLUOROSCOPY TIME: 0.1 minutes Spot images saved to PACS. TECHNIQUE: Intra-operative images acquired during surgical procedure to evaluate progress. NUMBER OF IMAGES: 44 LIMITATIONS: None. FINDINGS: Fluoroscopy was provided for intraoperative procedure. Please refer to the operative repo rt for further discussion. IMPRESSION: IMAGE(S) OBTAINED DURING PROCEDURE. COMMENT: Quality ID [id number]: Final reports for procedures using fluoroscopy that document radiation exp osure indices, or exposure time and number of fluorographic images (if radiation exposure indices are not available) Please consult full operative report of the attending physician for description of the procedure. TECHNICAL DOCUMENTATION: JOB ID: [id number] [employer]- All Rights Reserved Reading location - IP/workstation name: [email or web address]
--- NOTE | 2019-03-24 12:58 | RADIOLOGY REPORT (SQ) ---
EXAM DESCRIPTION: PORTACATH INSERTION; GUIDANCE ULTRASOUND; GUIDANCE FLUOROSCOPIC COMPLETED DATE/TIME: 03/24/2019 12:47 pm REASON FOR STUDY: C76.0 NECK CA C76.0 MALIGNANT NEOPLASM OF HEAD, FACE AND NECK COMPARISON: None. FLUOROSCOPY TIME: 0.1 minutes Spot images saved to PACS. TECHNIQUE: Intra-operative images acquired during surgical procedure to evaluate progress. NUMBER OF IMAGES: 44 LIMITATIONS: None. FINDINGS: Fluoroscopy was provided for intraoperative procedure. Please refer to the operative repo rt for further discussion. IMPRESSION: IMAGE(S) OBTAINED DURING PROCEDURE. COMMENT: Quality ID [id number]: Final reports for procedures using fluoroscopy that document radiation exp osure indices, or exposure time and number of fluorographic images (if radiation exposure indices are not available) Please consult full operative report of the attending physician for description of the procedure. TECHNICAL DOCUMENTATION: JOB ID: [id number] [employer]- All Rights Reserved Reading location - IP/workstation name: [email or web address]
--- NOTE | 2019-03-24 12:58 | RADIOLOGY REPORT (SQ) ---
EXAM DESCRIPTION: PORTACATH INSERTION; GUIDANCE ULTRASOUND; GUIDANCE FLUOROSCOPIC COMPLETED DATE/TIME: 03/24/2019 12:47 pm REASON FOR STUDY: C76.0 NECK CA C76.0 MALIGNANT NEOPLASM OF HEAD, FACE AND NECK COMPARISON: None. FLUOROSCOPY TIME: 0.1 minutes Spot images saved to PACS. TECHNIQUE: Intra-operative images acquired during surgical procedure to evaluate progress. NUMBER OF IMAGES: 44 LIMITATIONS: None. FINDINGS: Fluoroscopy was provided for intraoperative procedure. Please refer to the operative repo rt for further discussion. IMPRESSION: IMAGE(S) OBTAINED DURING PROCEDURE. COMMENT: Quality ID [id number]: Final reports for procedures using fluoroscopy that document radiation exp osure indices, or exposure time and number of fluorographic images (if radiation exposure indices are not available) Please consult full operative report of the attending physician for description of the procedure. TECHNICAL DOCUMENTATION: JOB ID: [id number] [employer]- All Rights Reserved Reading location - IP/workstation name: [email or web address]
--- NOTE | 2019-03-24 13:00 | Discharge Summary ---
Discharge Summary (SDC) - Discharge Final Diagnosis: Lung cancer. Date of Surgery: 03/24/19 Discharge Date: 03/24/19 Condition: Fair Treatment or Instructions: Discharge home [after recovery per ASU criteria]. Diet , as tolerated, when fully awake advance as tolerated. Activities within moderation encouraged. Follow up in my office by appointment in about [1 week]. Call for appointment. Leave wounds [covered], [keep clean and dry, until office visit in 2 weeks]. Hold of on school/work [until evaluation in office]. Meds per med rec. May shower [in 48 hrs], [try to keep operated area as dry as possible]. Referrals: LOUISE VENEGAS PA [Primary Care Provider] - Discharge Diet: As Tolerated Respiratory Treatments at Home: Deep Breathing/Coughing Discharge Activity: Activity As Tolerated Home Care Assistance: None Needed Report the Following to Your Physician Immediately: Shortness of Breath, Unusual Bleeding, Increased Soreness
--- NOTE | 2019-03-24 13:03 | Operative Report ---
Operative Report DATE OF SURGERY: 03/24/19 PREOPERATIVE DIAGNOSIS: Lung cancer. POSTOPERATIVE DIAGNOSIS: Lung cancer. OPERATION: 1. Evaluation and real-time ultrasound access in the right internal jugular vein. 2. Insertion of Port-A-Cath via repeat real-time access in the right internal jugular vein. 3. Angiogram and interpretation. SURGEON: FIDEL MCKEON COMMUNICATIONS REPRESENTATIVE: None. ANESTHESIA: Moderate Sedation TISSUE REMOVED OR ALTERED: Not applicable. COMPLICATIONS: None. ESTIMATED BLOOD LOSS: 5 mL. INTRAOPERATIVE FINDINGS: Of satisfactory right internal jugular vein about 1.5 cm in diameter. Separate satisfactory access. Satisfactory position of the catheter with the tip just down in the right atrium. Smooth flow of contrast through the catheter, right atrium noted. Easy egress of blood and ingress of heparinized solution. Postprocedure x-ray showed hardware in position, no untoward finding. PROCEDURE: After obtaining informed consent, the patient was taken to the [facility] and positioned supine. The [right] neck and chest were prepared with chlorhexidine and draped out with sterile linen. After the " universal timeout", in which it was verified that the patient continued to receive antibiotic, the procedure commenced. A steriley sheathed ultrasound probe was used to evaluate the [right] internal jugular vein. Local anesthesia was infiltrated adjacent to the probe. Access into the [right] internal jugular vein was obtained using a micropuncture needle, followed by micropuncture wire and then a micropuncture catheter. This was followed by introduction of a 0.035 guidewire the tip of which was placed down into the inferior vena cava . The port sites was marked , locally anesthetized and incision made. Dissection now proceeded to the deep subcutaneous subcutaneous tissues so that a pocket for the port was made. Meticulous hemostasis was secured and the catheter was tunneled between the 2 incisions. Proximally, the catheter was now positioned using a peel-away sheath. Distally the catheter was tailored to an appropriate length and then mated to the port using the contained fixating device. The port was now placed in the pocket and the catheter optimally positioned. The port was accessed with a Rodriguez needle and an angiogram done under digital subtraction. The findings as dictated. With adequate and satisfactory positioning, the lumen of the catheter was irrigated with heparinized solution. The wounds were now closed using interrupted 3-0 PDS to the subcutaneous tissues and a continuous subcuticular suture of 4-0 Monocryl to the skin. These are reinforced with Steri-Strips over benzoin and then dressings applied. Time: 0.1 minute. Dose: 2.52 m Gy Contrast: 5 Mls. Isovue 300. Copies of the dictated operative report for Dr. Fidel Hall MD.
[2019-03-24] MEDS ORDERED: DEXTROSE 5%-1/2 NORMAL SALINE 1,000 ML IV PRN (13:17)
[2019-03-24 13:28] VITALS: BP 130/91
== END 2019-03-24 14:10 | disposition home or self-care (01) ==
LOC: CCL 09:30
PROVIDERS: ATTEND Surgery
DX: C76.0 Malignant neoplasm of head, face and neck (principal); Z86.73 Personal history of transient ischemic attack (TIA), and cerebral infarction without residual deficits; C79.9 Secondary malignant neoplasm of unspecified site; E78.00 Pure hypercholesterolemia, unspecified; F17.210 Nicotine dependence, cigarettes, uncomplicated; Z79.82 Long term (current) use of aspirin; Z79.899 Other long term (current) drug therapy
CPT/HCPCS: 36415; 85027; 80048; 36561; 76937; 77001; 71045; C1752; Q9967; J2250; J3490 ×2; J0690; J3010; J7060; J1644

== ENCOUNTER 2019-06-10 09:45 | Outpatient (CLI) | payer SELFPAY ==
[~2019-06-10 09:45] MED LIST changes: -CEFAZOLIN SODIUM 1 GM in DEXTROSE 5%-WATER 50 ML IV PRN; +CISPLATIN IV PRN; +DEXAMETHASONE 10 MG in NS 50 ML IV PRN; -DIAZEPAM 5 MG TABLET PO PRN; +FOSAPREPITANT 150 MG in NS 150 ML IV PRN; +FUROSEMIDE INJ/PF 40 MG/4 ML SDV IV PRN; +NORMAL SALINE 1000 ML @ AS DIRECTED IV PRN; +NORMAL SALINE IV PRN; -OXYCODONE-ACETAMINOPHEN 5-325 MG TABLET PO PRN; +PALONOSETRON 0.25 MG/5 ML VIAL IV PRN
[2019-06-10 10:11] VITALS: BP 110/79
== END 2019-06-10 13:07 | disposition home or self-care (01) ==
LOC: II 09:45 → 5TH 09:52 → II 13:07
PROVIDERS: ATTEND Internal Medicine Hematology & Oncology
DX: Z51.11 Encounter for antineoplastic chemotherapy (principal); C76.0 Malignant neoplasm of head, face and neck
CPT/HCPCS: 96413; 96367; 96375; 96361; J9060; J1940; J7050; J7030; J1100; J1453; J2469; J1642

== ENCOUNTER → 2019-09-22 | Outpatient (CLI) | payer MEDICAID ==
--- NOTE | 2019-09-23 14:12 | RADIOLOGY REPORT (SQ) ---
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 TECHNIQUE: Blood glucose level was verified. Above dose of FDG was injected intravenously. 2-D seg mented attenuation correction images were obtained from the base of the skull to the midthighs. Nonc ontrast CT images were obtained for attenuation correction and fusion with emission images. CT image s were performed without oral or intravenous contrast and are not sensitive for parenchymal lesions. A series of overlapping emission PET images were obtained. Images reviewed and manipulated at [facility] work station by the radiologist. Images stored on PACS. LIMITATIONS: None. FINDINGS: HEAD AND NECK: No areas of abnormal metabolic activity in the soft tissues of the head and neck. Activity in the superior nasopharynx is no longer identified. No metabolically active cervical lymph nodes. CHEST: No areas of abnormal metabolic activity in the chest. ABDOMEN AND PELVIS: No areas of abnormal metabolic activity in the abdomen or pelvis. Expected physi ologic activity is present in the genitourinary system and bowel. PROXIMAL LOWER EXTREMITIES: No areas of abnormal metabolic activity in the soft tissues of the lower extremities. BONES: No abnormal metabolic activity in the visualized skeleton. ADDITIONAL CT FINDINGS: No additional significant findings on the noncontrast CT images. Right-sided permanent central line tip superior vena cava OTHER: No other significant findings. IMPRESSION: Resolved nasopharynx and cervical lymph node activity as compared to 02/22/2019 TECHNICAL DOCUMENTATION: JOB ID: [id number] 2010 [employer]- All Rights Reserved Reading location - IP/workstation name: [email or web address]
== END ==
LOC: RAD 14:38
PROVIDERS: ATTEND Internal Medicine Hematology & Oncology
DX: C76.0 Malignant neoplasm of head, face and neck (principal)
CPT/HCPCS: 78815; A9552